=== PATIENT | female | born 1985 | race Caucasian/White ===

== ENCOUNTER 2024-11-16 10:23 | Emergency (ER) | payer OTHER, SELFPAY ==
[2024-11-16 10:24] VITALS: BP 110/88
[2024-11-16 10:54] LABS: Hematocrit 37.0 % (37.0-47.0); Hemoglobin 11.8 g/dL (12.0-16.0); Mean Corp Hgb Conc. 31.9 g/dL (33.0-37.0); Mean Corpuscular Volume 78.7 fL (81.0-99.0); Nucleated Red Blood Cells % 0 %; Platelet Count 317 10^3/uL (130-400); Red Cell Dist. Width 13.9 % (11.5-14.5)
[2024-11-16 11:00] VITALS: BP 112/85
[2024-11-16 11:07] LABS: ALT (SGPT) 17 U/L (0-35); AST (SGOT) 20 U/L (14-36); Albumin 4.2 g/dl (3.5-5.0); Alkaline Phosphatase 82 U/L (38-126); Blood Urea Nitrogen 10 mg/dl (7-17); Calcium 8.9 mg/dl (8.4-10.2); Carbon Dioxide 26 mmol/L (22-30); Chloride 108 mmol/L (98-107); Glucose 99 mg/dl (70-99); Potassium 4.3 mmol/L (3.5-5.1); Sodium 138 mmol/L (135-145); Total Protein 6.9 g/dl (6.3-8.2); eGFR > 60.00
[2024-11-16] MEDS: NSS 1000 IV (11:12)
--- NOTE | 2024-11-16 11:13 | ED.GENMED ---
History of Present Illness
<Alyson Culp PA-C - Last Filed: 11/17/24 09:13>
General
Chief Complaint: Seizure
Source: patient and spouse
Exam Limitations: none
Time Seen by Provider: 11/16/24 10:40
Nursing documentation reviewed up to this point in time: agreed with
History of Present Illness
History of Present Illness:
39-year-old female history of epilepsy presents the emergency department alongside and family for evaluation after multiple breakthrough seizures. Patient's states that she has had 3 grand mal seizures over the past 3 days. These
were all witnessed and lasted less than 30 seconds. She did not sustain any head trauma or injuries during the seizures.
Patient had 1 seizure last night at 2 AM and then another 1 this morning at 8 AM. Her neurologist, Dr. Sushil Broussard at [facility], stated that if she had persistent breakthrough seizure she should be seen in an emergency department.
Patient was apparently diagnosed with epilepsy in 2023 after experiencing 2 grand mal seizures. She was taking zonisamide and Keppra however began to develop some type of 'allergic reaction' and is Cenestin vitamins recently discontinued. Her
neurologist has been titrating up her Keppra dose over the past 2 weeks and she is currently on 1250mg twice daily.
She has not had any recent fever or viral symptoms. No episodes of vomiting. She has been taking her medications as prescribed.
Patient's neurologist did schedule her for a 48-hour EEG this coming week as well as an MRI of her brain.
Review of Systems
<Alyson Culp PA-C - Last Filed: 11/17/24 09:13>
Review of Systems
Allergies reviewed?: Yes
All Other Systems: ROS reviewed and negative except as documented in HPI and ROS
Phy Exam
<Alyson Culp PA-C - Last Filed: 11/17/24 09:13>
Physical Exam
Physical Exam:
Vitals: Patient's vital signs are stable. Afebrile
General: Patient is well appearing, no acute distress
Skin: Warm and dry, no rashes or lesions
Head: Normocephalic, atraumatic
Eyes: Sclera nonicteric. EOMs intact. No nystagmus.
Throat: No laceration to tongue. Protecting airway
Neck: Normal ROM, no cervical spine tenderness, no meningismus
Cardiac: Regular rate and rhythm, no murmurs.
Pulm: Normal respiratory effort, no wheezes, rales, rhonchi heard on exam
.
Abdomen: No abdominal tenderness.
Extremities: No evidence of cyanosis or edema. Strength 5/5 in bilateral upper and lower extremities.
Neuro: AAOx3. CN II-XII grossly intact. No focal neurologic deficits.
Psychiatric: Normal affect.
Course
<Alyson Culp PA-C - Last Filed: 11/17/24 09:13>
Orders/Labs/Results
Orders:
Orders
11/16/24 10:45
CPK Isoenzyme Urgent
Comment: ADD ON
Complete Blood Count/With Diff Urgent
Comprehensive Metabolic Panel Urgent
HCG, Serum Qualitative Screen Urgent
Comment: ADD ON
Keppra (Levetiracetam) [S] Urgent
Magnesium Urgent
Comment: ADD ON
11/16/24 10:57
0.9% Sodium Chloride 1000 ml [Nss] 1,000 ml IV BOLUS
11/16/24 10:58
Add On- LAB Urgent
Tests Added?: serum, hcg qual
11/16/24 11:14
COVID-19 Antigen Urgent
Source: Nasal Swab
Influenza A+B Rapid Molecular Urgent
TODD Source: Nasal Swab
Specimen Description:
11/16/24 12:40
Consult Neurology [NEUROLOGY CONSULT] Urgent
Consulting Provider: Neli Ness
Was physician already notified: Yes
11/16/24 13:11
Add On- LAB Urgent
Tests Added?: Magnesium and Total CK
11/16/24 14:12
Urinalysis Routine
Date Specimen was Collected: 11/16/24
Time Specimen was Collected: 14:04
Comment: Clean catch
Abnormal Lab Results
11/16/24
10:45
Hgb 11.8 L g/dL
(12.0-16.0)
MCV 78.7 L fL
(81.0-99.0)
MCH 25.1 L pg
(27.0-31.0)
MCHC 31.9 L g/dL
(33.0-37.0)
Lymphocytes % 18.0 L %
(20.5-51.1)
Chloride 108 H mmol/L
(98-107)
Total Creatine Kinase 141 H U/L
(30-135)
11/16/24 10:45
11/16/24 10:45
Vital Signs
Initial and Last Documented VS:
Initial Vital Signs
Temp Pulse Resp BP Pulse Ox
98.5 F 94 16 110/88 98
11/16/24 10:24 11/16/24 10:24 11/16/24 10:24 11/16/24 10:24 11/16/24 10:24
Last Documented Vital Signs
Temp Pulse Resp BP Pulse Ox
98.5 F 66 17 101/69 98
11/16/24 10:24 11/16/24 15:30 11/16/24 15:30 11/16/24 15:00 11/16/24 15:30
<Dax Schrader MD - Last Filed: 11/16/24 14:21>
Orders/Labs/Results
Orders:
Orders
11/16/24 10:45
CPK Isoenzyme Urgent
Comment: ADD ON
Complete Blood Count/With Diff Urgent
Comprehensive Metabolic Panel Urgent
HCG, Serum Qualitative Screen Urgent
Comment: ADD ON
Keppra (Levetiracetam) [S] Urgent
Magnesium Urgent
Comment: ADD ON
11/16/24 10:57
0.9% Sodium Chloride 1000 ml [Nss] 1,000 ml IV BOLUS
11/16/24 10:58
Add On- LAB Urgent
Tests Added?: serum, hcg qual
11/16/24 11:14
COVID-19 Antigen Urgent
Source: Nasal Swab
Influenza A+B Rapid Molecular Urgent
TODD Source: Nasal Swab
Specimen Description:
11/16/24 12:40
Consult Neurology [NEUROLOGY CONSULT] Urgent
Consulting Provider: Neli Ness
Was physician already notified: Yes
11/16/24 13:11
Add On- LAB Urgent
Tests Added?: Magnesium and Total CK
11/16/24 14:12
Urinalysis Routine
Date Specimen was Collected: 11/16/24
Time Specimen was Collected: 14:04
Comment: Clean catch
Abnormal Lab Results
11/16/24
10:45
Hgb 11.8 L g/dL
(12.0-16.0)
MCV 78.7 L fL
(81.0-99.0)
MCH 25.1 L pg
(27.0-31.0)
MCHC 31.9 L g/dL
(33.0-37.0)
Lymphocytes % 18.0 L %
(20.5-51.1)
Chloride 108 H mmol/L
(98-107)
Total Creatine Kinase 141 H U/L
(30-135)
11/16/24 10:45
11/16/24 10:45
Vital Signs
Initial and Last Documented VS:
Initial Vital Signs
Temp Pulse Resp BP Pulse Ox
98.5 F 94 16 110/88 98
11/16/24 10:24 11/16/24 10:24 11/16/24 10:24 11/16/24 10:24 11/16/24 10:24
Last Documented Vital Signs
Temp Pulse Resp BP Pulse Ox
98.5 F 66 17 101/69 98
11/16/24 10:24 11/16/24 15:30 11/16/24 15:30 11/16/24 15:00 11/16/24 15:30
<Alyson Culp PA-C - Last Filed: 11/17/24 09:13>
MDM/Problems Addressed
Differential Diagnosis Includes:
Not limited to: Viral illness, acute dehydration, medication side effect, epilepsy, doubt acute intracranial abnormality
MDM/Problems Addressed:
39-year-old female with a known history of epilepsy presents with multiple breakthrough generalized tonic-clonic seizures over the past 36 hours. No reported head trauma, fall, or other injuries. No current infectious symptoms. She is under ongoing
medication adjustment with her primary neurologist at [facility].
On evaluation, patient is at her neurologic baseline, well-appearing, and without focal deficits. No seizure activity observed in ED. No signs of trauma or injury.
Workup including basic labs, viral studies, and urinalysis is unremarkable. No evidence of infection or metabolic derangement. Given absence of new neurologic findings and reassuring exam, immediate CT imaging is not indicated at this time.
Given the frequency of recent seizures, neurology was consulted and evaluated the patient at bedside. After assessment, they recommended increasing Keppra to 1500 mg BID. A limited supply of Ativan will be prescribed as a rescue medication for
breakthrough seizures.
Case also discussed with covering neurologist at patients practice
Offered admission for OBS however patient and family prefer discharge home.
Patient has upcoming scheduled outpatient neurologic workup including 48-hour EEG and MRI. She remains stable and without complaints throughout ED stay.
Discharged home in stable condition with strict return precautions. Advised to follow closely with her primary neurologist.
Chronic conditions affecting care:
Epilepsy
Acute Exacerbation and/or Progression of Chronic Illness:
Breakthrough seizure
<Alyson Culp PA-C - Last Filed: 11/17/24 09:13>
*Pulse Oximetry
SaO2: 98
Oxygen Mode of Delivery: Room air
Patient hypoxic: no
*Television Repair Teacher Interpretation
Rate: normal
Interpretation: normal
Heart Rate: 76
Rhythm: sinus
*Critical Care Note
Total Time (30-74mins, 75-104mins- exclusive of procedures): Not Applicable
<Alyson Culp PA-C - Last Filed: 11/17/24 09:13>
Patient Management
Discussion with other providers: Personal Care Assistant (Case discussed w/ neurology)
ED Attending Note
<Alyson Culp PA-C - Last Filed: 11/17/24 09:13>
-
Portions of this chart may have been created with voice recognition software.� Occasional wrong word or��sound alike� substitutions may have occurred due to the inherent limitations of voice recognition software.
<Dax Schrader MD - Last Filed: 11/16/24 14:21>
ED Attending Note
Patient seen and examined by attending physician: Yes
I performed the substantive portion of visit, reviewed & personally made and approve the management plan that is documented in note by myself or CURTIS.: Yes
ED Attending Note:
39-year-old female history of seizures. 2 negative MRIs in the past. Currently on Keppra 1250 twice daily. Had started at 750 twice daily. Her secondary antiepileptic medication was stopped. 3 seizures in the last 36 hours. Each grand mal.
Lasting about 30 seconds. Postictal for 15 to 20 minutes. Currently feels generally weak but otherwise stable.
Exam is nonfocal. Speech is normal. Normocephalic atraumatic. Neck is supple and nontender. Speech is normal. Cranial nerves II through XII intact. Warehouse Worker are normal. Upper and lower extremity strength normal. No tongue wound. Regular rate
and rhythm.
Impression is recurrent seizures grand mal in nature. 3 in 36 hours. Discussed with patient's covering neurologist. Will ask for our neurology input.
Discharge Plan
Departure
Patient Disposition: Home (Routine Discharge)
Date of Disposition: 11/16/24
Time of Disposition: 14:54
Patient with high blood pressure during this ER visit?: No
Condition: Good
Covid-19: Negative COVID-19
Discharge Problem:
Seizure
Instructions: Seizures, Adult (DC)
Prescriptions:
New
levetiracetam [Keppra] 1,000 mg tablet
1,500 mg PO BID 30 Days Qty: 90 0RF
lorazepam 1 mg tablet
1 mg PO DAILY PRN (Reason: Seizures) Qty: 5 0RF
Referrals:
Ben Rob DO [Family Provider]
Sushil Warner MD [Non-Admitting Privileges, Neurology] - Next open appointment
Activity Restrictions/Additional Instructions:
RETURN TO THE EMERGENCY DEPARTMENT WITH ANY RECURRENT SEIZURES, PERSISTENT SEIZURE ACTIVITY, CHANGES IN MENTAL STATUS, FEVER OR HEADACHE, WORSENING IN CURRENT SYMPTOMS, OR ANY OTHER CONCERNS
- As discussed�your lab work and urinalysis showed no acute abnormalities today in the emergency department. Your viral studies were negative.
- As recommended by neurology�a prescription to increase your Keppra to 1500 mg twice a day has been sent to your pharmacy. You can start taking this dose this evening. In addition, if you have any additional seizure activity it is recommended
that you take 1 mg of lorazepam daily X 3 to 5 days. This has also been sent to your pharmacy.
- Please stay well-hydrated.
-Follow-up with your neurologist for further evaluation/management and for medication changes as needed. You should keep appointment for EEG and MRI.
Monitor your symptoms closely and return to the emergency department with any acute worsening/new symptoms or any other concerns
Interventions
Interventions:
*Risk Screen - Suicide Last Done: 11/16/24 10:28
*General Assessment Last Done: 11/16/24 11:18
*Neglect/Abuse Screening Last Done: 11/16/24 10:28
*ED- Fall Risk Assessment Last Done: 11/16/24 11:18
*ED COVID-19 Vaccine History Last Done: 11/16/24 11:00
*ED Influenza Vaccine History Last Done: 11/16/24 11:00
*Nursing Disposition Last Done: 11/16/24 15:50
ED- Cardiac Assessment Last Done: 11/16/24 10:59
ED- Neurological Assessment Last Done: 11/16/24 10:59
ED- Pulmonary Assessment Last Done: 11/16/24 10:59
Discharge Date and Time
Discharge Date/Time: 11/16/24 16:14
Print Language: [id number]
[2024-11-16 11:14] LABS: HCG, Serum Qualitative Screen Negative
[2024-11-16 11:18] VITALS: BMI 28.9
[2024-11-16 12:00] VITALS: BP 108/74
[2024-11-16 12:19] LABS: COVID-19 Antigen Negative (Negative)
[2024-11-16 13:00] VITALS: BP 104/75
--- NOTE | 2024-11-16 13:00 | CON.NEURO ---
Consultation
Order
Date of Consultation: 11/16/24
Requesting Provider: Alyson Culp PA-C
Reason for Consult: Seizure cluster
Neurology Consultation Note.
HPI: This is a 39-year-old RH woman who presented to [facility] on 11/16/2024 with seizure cluster.
seizure-free for over six months.
According to Mr. Rangel, approximately five weeks ago the patient was weaned off Zonegran after she developed hives after being on it for about 8-9 months with concurrent titration of Keppra.
The current seizure cluster began with the first seizure occurring night while she was standing. The family contacted patient's neurologist and her Keppra was increased to 1250 mg BID.
The second seizure occurred at 2 AM Monday morning while sleeping, and a third seizure at 8 AM Monday morning, also while sleeping. All three seizures were described as similar in nature -bilateral arm flexion left neck flexion and generalized
stiffening. The seizures were brief, lasting less than 30 seconds, with the most recent one lasting approximately 15 seconds. She experienced no tongue biting or urinary incontinence. Recovery time was approximately 15-20 minutes before she could
communicate normally, and 20-30 minutes to fully return to baseline.
After each last 2 seizures, she was given PO Lorazepam 1 mg and Keppra 1250 mg.
ER VS: 110/88, 84, afebrile
EKG: Not available
PDMP:Valtoco 10 Mg Nasal, Lorazepam 1 Mg�10 tablets filled in on 10/27/2023.
Labs: Normal glucose, sodium, creatinine,
PMH:temporal lobe epilepsy(2023, Sushil Warner MD,), LISY, vitiligo, PCOS
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
FH:no FH of epilepsy
All: Sulfa
ROS: General: Positive for fatigue.
Musculoskeletal: Positive for pinched nerve in neck and right shoulder pain. Negative for tingling or numbness in hands.
Neurological: Negative for headache.
Genitourinary: Negative for difficulties with urination.
General: Well developed. In no acute distress.
Cardio: Regular rate and rhythm without murmur. Extremities are without cyanosis or edema.
Neuro:
Mental Status: Alert, oriented to person, place, and date. Normal attention and recall. Good fund of knowledge. Follows complex requests across the midline. Comprehension, naming, and repetition intact.
Cranial Nerves: Pupils are equally round and reactive to light. EOMs full. Visual aguilar full to confrontation. No ptosis. No nystagmus. V1-V3 intact to light touch and pinprick bilaterally, symmetric. Face symmetric. Normal hearing AU. The
palate elevated well. SCMs and traps 5/5. Tongue midline. No dysarthria.
Motor: Normal bulk and tone. No pronator or arm drift. Strength 5/5 throughout. No clonus.
Reflexes: 2+ throughout the upper extremities and knees. 2/2 in AJs. Plantar responses flexor bilaterally.
Sensory: Normal pinprick, vibration and JPS.
Coordination: No dysmetria or tremor.
Gait: deferred
Assessment and Plan:
I. Focal nonlesional epilepsy with seizure cluster.
II. LISY
III. Vitiligo
- Seizure precautions
- Increase Keppra to 1500 mg twice daily
- Start lorazepam 1 mg daily for 3-5 days if recurrent seizures should occur
- Outpatient neurology follow-up in 1 week
-Please follow-up magnesium, urinalysis
- The case was discussed with patient's spouse and parents.
I personally reviewed all radiology and labs along with past medical records pertinent to current medical problems. Total time spent in patient care is 60 minutes.
Thank you for allowing us to participate in the care of this patient. Please do not hesitate to contact us with any questions or concerns.
Subjective/Objective
Subjective Data
Date of Service: November 16, 2024
Objective Data
Vital Signs
Temp Pulse Resp BP Pulse Ox
36.9 C 69 17 108/74 96
11/16/24 10:24 11/16/24 12:15 11/16/24 12:15 11/16/24 12:00 11/16/24 12:15
Lab Results
11/16/24 10:45
11/16/24 10:45
Sodium 138 mmol/L (135-145) 11/16/24 10:45
Potassium 4.3 mmol/L (3.5-5.1) 11/16/24 10:45
BUN 10 mg/dl (7-17) 11/16/24 10:45
Glucose 99 mg/dl (70-99) 11/16/24 10:45
Calcium 8.9 mg/dl (8.4-10.2) 11/16/24 10:45
Patient Allergies
Sulfa (Sulfonamide Antibiotics) Allergy (Verified 11/16/24 10:27)
Hives
[2024-11-16 13:54] LABS: Magnesium 1.8 mg/dl (1.6-2.3)
[2024-11-16 14:00] VITALS: BP 98/69
[2024-11-16 14:20] LABS: Urine Character Clear (Clear)
[2024-11-16 14:29] LABS: CKMB 1.1 ng/ml (0.0-3.4)
[2024-11-16 15:00] VITALS: BP 101/69
== END 2024-11-16 16:14 | disposition home or self-care (01) ==
LOC: EMR 10:23
PROVIDERS: Physician Assistant; CONSULT PHYSICIAN Psychiatry & Neurology Neurology; EMERGENCY PHYSICIAN Emergency Medicine; FAMILY PHYSICIAN Family Medicine
DX: G40.909 Epilepsy, unspecified, not intractable, without status epilepticus (principal); G47.33 Obstructive sleep apnea (adult) (pediatric); E28.2 Polycystic ovarian syndrome; Z88.2 Allergy status to sulfonamides
CPT/HCPCS: 99284; 96360; 80053; 80177; 81003; 82550; 82553; 83735; 84703; 85025; 87502; 87811